=== PATIENT | male | born 1985 | race Caucasian/White ===

== ENCOUNTER 2017-12-14 13:53 | Emergency (ER) | payer SELFPAY ==
[~2017-12-14] VITALS: Ht 177.8 cm; Wt 70.0 kg
[2017-12-14 14:06] VITALS: BP 147/85
[2017-12-14] MEDS ORDERED: PENI500T2 PO (14:23)
[2017-12-14] MEDS ORDERED: HYDR-3965 PO (14:23)
[2017-12-14] MEDS ORDERED: CLIN-79 PO (14:29)
== END 2017-12-14 14:39 | disposition home or self-care (01) ==
LOC: ER 13:53
DX: K08.89 Other specified disorders of teeth and supporting structures (principal); Z88.0 Allergy status to penicillin
CPT/HCPCS: 99283